=== PATIENT | male | born 1970 ===

== ENCOUNTER 2017-06-19 13:47 | Emergency (ER) | payer OTHER ==
[2017-06-19 13:53] VITALS: BMI 27.9
[2017-06-19 13:57] VITALS: BP 120/73; PULSE 66; RESP 18; TEMP 98.3; O2SAT 99
--- NOTE | 2017-06-19 14:15 | C.PDOC ---
History Of Present Illness 46 year old male presents to the emergency department status-post an injury he sustained at work. Patient states that a wooden beam fell off of a truck and hit his head. Patient denies loss of consciousness, and only states having a headache and experiencing pain to the site of the injury. Patient reports feeling slightly dizzy at the time of the incident, but denies any dizziness at the moment. Patient also denies nausea, vomiting, and other injury; states that he took Advil at the time of the injury. Time Seen by Provider: 06/19/17 13:58 Chief Complaint (Nursing): Abnormal Skin Integrity History Per: Patient History/Exam Limitations: no limitations Onset/Duration Of Symptoms: Hrs Patient States: Struck With Object Past Medical History Reviewed: Historical Data, Nursing Documentation, Vital Signs Vital Signs: Last Vital Signs Temp 98.3 F 06/19/17 13:53 Pulse 66 06/19/17 13:53 Resp 18 06/19/17 13:53 BP 120/73 06/19/17 13:53 Pulse Ox 99 06/19/17 15:06 - Medical History PMH: No Chronic Diseases Surgical History: Appendectomy Family History: States: No Known Family Hx - Social History Hx Alcohol Use: No Hx Substance Use: No - Immunization History Hx Tetanus Toxoid Vaccination: No Hx Influenza Vaccination: No Hx Pneumococcal Vaccination: No Review Of Systems Except As Marked, All Systems Reviewed And Found Negative. Musculoskeletal: Positive for: Other (head pain at site of injury) Neurological: Positive for: Headache, Dizziness (at the time of the incident). Negative for: Other (loss of consciousness) Physical Exam - Physical Exam Appears: Non-toxic, No Acute Distress Skin: Warm, Dry Head: Normacephalic, Tenderness (at site of laceration), Swelling, Laceration ( 1cm superficial laceration to the vertex of head, no active bleeding) Eye(s): bilateral: Normal Inspection, PERRL, EOMI Neck: Normal ROM, No Midline Cervical Tenderness, No Paracervical Tenderness, No Step Off Deformity Chest: Symmetrical Extremity: Bilateral: Atraumatic, Normal ROM Neurological/Psych: Oriented x3, Normal Speech, Normal Cranial Nerves, Normal Motor, Normal Sensation Gait: Steady ED Course And Treatment O2 Sat by Pulse Oximetry: 99 (RA) Pulse Ox Interpretation: Normal - CT Scan/US Head Other Rad Studies (CT/US): Read By Radiologist, Radiology Report Reviewed CT/US Interpretation: Accession No. : [id number]. Patient Name / ID : KAYE CASEY / [id number]. Exam Date : 06/19/2017 14:34:04 ( Approved ). Study Comment : Sex / Age : M / 46Y. Creator : Hans Faust MD. Dictator : Hans Faust MD. Steam Fitter Helper : Dyslexia Teacher : Hans Faust MD. Approver2 : Report Date : 06/19/2017 14:51:26. My Comment : . PROCEDURE: CT HEAD WITHOUT CONTRAST. HISTORY: wooden beam hit head, c.o pain and swelling. COMPARISON: None available. TECHNIQUE: Axial computed tomography images were obtained through the head/brain without intravenous contrast. Radiation dose: Total exam DLP = 935.75 mGy-cm. This CT exam was performed using one or more of the following dose reduction techniques: Automated exposure control, adjustment of the mA and/or kV according to patient size, and/or use of iterative reconstruction technique. FINDINGS: HEMORRHAGE: No intracranial hemorrhage. BRAIN: Normal stauffer-white matter differentiation and density are appreciated throughout the cerebrum and cerebellum with the brainstem appearing unremarkable as well. There is no mass effect. There is no suspicious extra-axial fluid collection and the midline brain anatomy appears diffusely unremarkable. VENTRICLES: Unremarkable. No hydrocephalus. CALVARIUM: No destructive bony lesion or displaced fracture identified including through the skullbase. PARANASAL SINUSES: Unremarkable as visualized. No significant inflammatory changes. MASTOID AIR CELLS: Unremarkable as visualized. No inflammatory changes. OTHER FINDINGS: None. IMPRESSION: Unremarkable unenhanced CT of the Head. Laceration - Laceration Repair scalp wound Wound Length (In cm): 1 Description Of Wound: Linear, Clean Wound Cleansed With: Sterile Saline Wound Examination: Irrigated With Saline, No FB With Wound Exploration Wound Closure: Skin Glue (dermabond) Wound Complexity: Simple Medical Decision Making Medical Decision Making: Impression: head injury Plan: Head CT w/o Contrast Tylenol 650mg PO Progress: CT read by radiologist Hans Samuels MD; IMPRESSION: Unremarkable unenhanced CT of the Head. Laceration irrigated with NS, no deep laceration requiring suture/paolo. Wound edges closed with dermabond. Patient reevaluated remained alert and oriented in no distress. Discussed Ct results with him. Advised on wound care. He is stable for discharge Disposition Counseled Patient/Family Regarding: Need For Followup - Disposition Referrals: [facility] [Outside] [facility] [Outside] Disposition: HOME/ ROUTINE Disposition Time: 15:04 Condition: GOOD Additional Instructions: return to the ER if any alteration in behavior or mental status, severe headache , nausea, persistent vomiting, or loss of consciousness occurs. Skin glue was used to close your wound, do not apply ointment to area as it may dissolve glue. Glue patch will gradually fall off in few days. regresar a la william de emergencias si ocurre alguna alteracin en el comportamiento o estado mental, dolor de ramos daylin, nuseas, vmitos persistentes o prdida de la conciencia. Se us pegamento para la piel para cerrar la herida, no aplique la pomada en el pierce ya que puede disolver el pegamento. El parche de pegamento se caer gradualmente en pocos queen. 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 - Scribe Statement The provider has reviewed the documentation as recorded by the Scribe (James Che)
--- NOTE | 2017-06-19 14:52 | CT ---
PROCEDURE: CT HEAD WITHOUT CONTRAST. HISTORY: wooden beam hit head, c.o pain and swelling COMPARISON: None available. TECHNIQUE: Axial computed tomography images were obtained through the head/brain without intravenous contrast. Radiation dose: Total exam DLP = 935.75 mGy-cm. This CT exam was performed using one or more of the following dose reduction techniques: Automated exposure control, adjustment of the mA and/or kV according to patient size, and/or use of iterative reconstruction technique. FINDINGS: HEMORRHAGE: No intracranial hemorrhage. BRAIN: Normal stauffer-white matter differentiation and density are appreciated throughout the cerebrum and cerebellum with the brainstem appearing unremarkable as well. There is no mass effect. There is no suspicious extra-axial fluid collection and the midline brain anatomy appears diffusely unremarkable. VENTRICLES: Unremarkable. No hydrocephalus. CALVARIUM: No destructive bony lesion or displaced fracture identified including through the skullbase. PARANASAL SINUSES: Unremarkable as visualized. No significant inflammatory changes. MASTOID AIR CELLS: Unremarkable as visualized. No inflammatory changes. OTHER FINDINGS: None. IMPRESSION: Unremarkable unenhanced CT of the Head.
== END 2017-06-19 15:08 | disposition home or self-care (01) ==
LOC: C.ER 13:47
DX: S09.90XA Unspecified injury of head, initial encounter (principal); S01.01XA Laceration without foreign body of scalp, initial encounter; W20.8XXA Other cause of strike by thrown, projected or falling object, initial encounter